=== PATIENT | male | born 1985 | race Caucasian/White ===

== ENCOUNTER 2019-01-16 06:45 | Day surgery (SDC) | payer BC ==
[~2019-01-16] VITALS: Ht 193 cm; Wt 87.8 kg
[2019-01-16] MEDS ORDERED: PROTONIX20 MG PO ×2 (07:00→07:01)
[2019-01-16 07:12] VITALS: BP 136/95; PULSE 84; TEMP 97.7
[2019-01-16] MEDS ORDERED: FIBER0.52 GM PO (07:40)
[2019-01-16] MEDS ORDERED: VITAMIN C500 MG PO (07:41)
[2019-01-16] MEDS ORDERED: PROBIOTIC ACID1 EAC3 PO (07:42)
[2019-01-16] MEDS ORDERED: PHARMASSURE ZIN50 MG PO (07:42)
[2019-01-16 09:10] VITALS: BP 126/86; PULSE 73; TEMP 97.9
--- NOTE | 2019-01-16 09:10 | NUR ---
PATIENT TRANSPORTED PER CART ACCOMPANIED BY ENDO STAFF TO ARGY[facility] 2. PATIENT AMBULATES WITH 1 ASSIST FROM CART TO CHAIR. STEADY GAIT. PATIENT DENIES NAUSEA AND DISCOMFORT. IV INFUSING WITHOUT PROBLEMS PER GRAVITY. FATHER AT BEDSIDE. VERBAL REPORT RECEIVED.
[2019-01-16 09:15] VITALS: BP 113/83; PULSE 69
--- NOTE | 2019-01-16 09:15 | NUR ---
VSS. PATIENT ALERT AND TALKING WITH STAFF AND FATHER. PATIENT GIVEN MUFFIN AND APPLE JUICE. DENIES NAUSEA AND DISCOMFORT.
[2019-01-16 09:30] VITALS: BP 120/82; PULSE 61
--- NOTE | 2019-01-16 09:30 | NUR ---
VSS. PATIENT ALERT AND ORIENTED. TOLERATED MUFFIN AND JUICE WITHOUT PROBLEMS. DENIES NAUSEA AND DISCOMFORT. FAITHER AT BEDSIDE.
[2019-01-16 09:45] VITALS: BP 122/85; PULSE 65
--- NOTE | 2019-01-16 09:45 | NUR ---
PATIENT DENIES PROBLEMS. VSS. DR GREER IN ROOM AND SPEAKS WITH PATIENT AND FATHER.
[2019-01-16 10:05] VITALS: TEMP 98
--- NOTE | 2019-01-16 10:11 | NUR ---
DISCHARGE INSTRUCTIONS GIVEN VERBAL AND DISCHARGE PACKET PROVIDED. QUESTIONS ANSWERED AND PATIENT VOICED UNDERSTANDING. IV DC'D WITH TIP INTACT. NO REDDNESS OR SWELLING NOTED. PATIENT DRESSES SELF AND STEADY GAIT.
== END 2019-01-16 10:05 | disposition home or self-care (01) ==
LOC: SDCO 06:45
PROVIDERS: Internal Medicine Gastroenterology
DX: R19.7 Diarrhea, unspecified (principal); K92.1 Melena; K62.89 Other specified diseases of anus and rectum; K64.4 Residual hemorrhoidal skin tags; K21.9 Gastro-esophageal reflux disease without esophagitis
CPT/HCPCS: J2250; J2405; J3010; J7030